=== PATIENT | male | born 1955 | race Caucasian/White ===

== ENCOUNTER 2021-08-16 01:16 | Day surgery (SDC) | payer MEDICARE, SELFPAY ==
[2021-08-07 14:03] VITALS: BMI 30.6
[2021-08-16 11:12] VITALS: BP 145/70; PULSE 75; RESP 18; TEMP 36.4; O2SAT 98; BMI 30.2
--- NOTE | 2021-08-16 11:14 | WPDGICN ---
Assessment and Plan Assessment and plan (1) Family history of colonic polyps: Code(s): Z83.71 - Family history of colonic polyps Status: Acute Assessment and Plan: Patient's father had colon polyps. For this reason surveillance colonoscopy has been advised. High-fiber diet advised further recommendations will be given after colonoscopy to be performed today. GI Consult Note Consult date/time: 08/16/21 11:14 HPI: Tvein Lopez is a 66 year old male Presents for screening colonoscopy. Patient reports his current weight appetite and bowel movements are normal. Patient denies abdominal pain. He has had no bleeding. Family history is significant his father had colon polyps. Patient's most recent colonoscopy 6 or 7 years ago was unremarkable. Patient presents today for screening follow-up colonoscopy. Review of Systems Review of Systems: All systems reviewed & are unremarkable except as noted in HPI and below PMFSH Past Medical History Medical History (Updated 08/16/21 @ 11:15 by Rafi Aguilera MD) CPAP (continuous positive airway pressure) dependence Fracture of left shoulder GI bleed Herniated disc History of blood transfusion Hyperlipidemia Migraines Obesity (BMI 30.0-34.9) Right hand fracture Shingles Skin cancer Sleep apnea CPAP Ulcer Vitamin deficiency Surgical History Surgical History H/O repair of rotator cuff right H/O sinus surgery H/O spinal fusion L3, L4, L5 H/O splenectomy H/O vasectomy Family History Family History Mother Family history of cardiovascular disease Grandparent Cerebrovascular accident Father Family history of arthritis Carcinoma of colon Colon polyp Social History Social History Smoking status: Never smoker Alcohol intake: current Drinks per week: 4 Alcohol use details: occasional Substance use: current Substance use type: marijuana Other substance usage details: occasional edible for back pain Living arrangements: with family Gender identity (if verbalized by the patient): Male Spiritual care concerns: No Meds Home Medications and Allergies Home Medications Medication Instructions Recorded Confirmed Type cholecalciferol (vitamin D3) 50 50 mcg PO DAILY 01/13/20 08/07/21 History mcg (2,000 unit) capsule tizanidine 2 mg tablet 2 mg PO TID PRN #90 tablet 06/05/20 08/07/21 Rx omeprazole 40 mg capsule,delayed 40 mg PO DAILY #90 cap 07/24/20 08/07/21 Rx release hydrocodone 5 mg-acetaminophen 325 1 tablet PO Q8H PRN #40 tablet 12/25/20 08/07/21 Rx mg tablet sildenafil (pulm.hypertension) 20 20 mg PO DAILY PRN #30 tablet 06/04/21 08/07/21 Rx mg tablet lisinopril 10 mg PO DAILY 08/07/21 08/07/21 History Allergies Allergy/AdvReac Type Severity Reaction Status Date / Time atorvastatin Allergy Unknown Muscle Pain Verified 08/07/21 14:05 poison lencho extract Allergy Unknown Skin Verified 08/07/21 14:05 Reaction Sulfa (Sulfonamide Allergy Unknown Skin Verified 08/07/21 14:05 Antibiotics) Reaction sulfamethizole Allergy Unknown Skin Verified 08/07/21 14:05 Reaction codeine AdvReac Unknown Nausea Verified 08/07/21 14:05 valacyclovir AdvReac Unknown Nausea Verified 08/07/21 14:05 Exam Narrative: physical exam reveals patient be alert. Vital signs stable. HEENT exam is unremarkable. Patient is anicteric. Lungs are clear to auscultation and percussion. Heart is without murmur or extra sounds. Abdominal exam bowel sounds are present soft nontender with no hepatosplenomegaly. Digital external rectal exam is normal.
[2021-08-16] MEDS: LACTATED RINGERS 1,000 ML 150 ML IV CONT (11:24)
--- NOTE | 2021-08-16 12:14 | WPDANESEPPF ---
Anes - Initial Pre Proc Eval Procedure: Operation Date: 08/16/21 12:30 Proposed Procedures p Screening Colonoscopy - Rafi Aguilera MD Date/Time: 08/16/21 12:14 Surgeon: Rafi Aguilera MD Pre Op Diagnosis: family hx of colon polyps Patient Data Age: 66 Gender: M Height: 1.75 m Weight: 92.7 kg Last Vital Signs Temp 97.6 F 08/16/21 11:12 Pulse 75 08/16/21 11:12 Resp 18 08/16/21 11:12 BP 145/70 H 08/16/21 11:12 Pulse Ox 98 08/16/21 11:12 Allergies Allergy/AdvReac Type Severity Reaction Status Date / Time atorvastatin Allergy Unknown Muscle Pain Verified 08/07/21 14:05 poison lencho extract Allergy Unknown Skin Verified 08/07/21 14:05 Reaction Sulfa (Sulfonamide Allergy Unknown Skin Verified 08/07/21 14:05 Antibiotics) Reaction sulfamethizole Allergy Unknown Skin Verified 08/07/21 14:05 Reaction codeine AdvReac Unknown Nausea Verified 08/07/21 14:05 valacyclovir AdvReac Unknown Nausea Verified 08/07/21 14:05 Home Medications Medication Instructions Recorded Confirmed Type cholecalciferol (vitamin D3) 50 50 mcg PO DAILY 01/13/20 08/07/21 History mcg (2,000 unit) capsule tizanidine 2 mg tablet 2 mg PO TID PRN #90 tablet 06/05/20 08/07/21 Rx omeprazole 40 mg capsule,delayed 40 mg PO DAILY #90 cap 07/24/20 08/07/21 Rx release hydrocodone 5 mg-acetaminophen 325 1 tablet PO Q8H PRN #40 tablet 12/25/20 08/07/21 Rx mg tablet sildenafil (pulm.hypertension) 20 20 mg PO DAILY PRN #30 tablet 06/04/21 08/07/21 Rx mg tablet lisinopril 10 mg PO DAILY 08/07/21 08/07/21 History Patient hx anesthesia problems: none Family hx anesthesia problems: none Results Review: All pre-operative results and documents have been reviewed as part of the pre-operative evaluation. [facility] Past Medical History Medical History (Updated 08/16/21 @ 11:15 by Rafi Aguilera MD) CPAP (continuous positive airway pressure) dependence Fracture of left shoulder GI bleed Herniated disc History of blood transfusion Hyperlipidemia Migraines Obesity (BMI 30.0-34.9) Right hand fracture Shingles Skin cancer Sleep apnea CPAP Ulcer Vitamin deficiency Surgical History Surgical History H/O repair of rotator cuff right H/O sinus surgery H/O spinal fusion L3, L4, L5 H/O splenectomy H/O vasectomy Family History Family History Mother Family history of cardiovascular disease Grandparent Cerebrovascular accident Father Family history of arthritis Carcinoma of colon Colon polyp Social History Social History Smoking status: Never smoker Alcohol intake: current Drinks per week: 4 Alcohol use details: occasional Substance use: current Substance use type: marijuana Other substance usage details: occasional edible for back pain Living arrangements: with family Gender identity (if verbalized by the patient): Male Spiritual care concerns: No Anes - Eval Final PreProcedure Day of Procedure 08/16/21 12:14 Patient weight: overweight Heart: regular rate and rhythm Lungs: clear to auscultation Airway: Mallampati scale class II Neurological: alert and oriented Last oral intake: >/= 8 hours ASA classification: II Emergent: no Anesthetic plan: proceed Anesthesia type and monitoring: general GIVS and standard monitoring Results Review: All pre-operative results and documents have been reviewed as part of the pre-operative evaluation. Informed Consent: The patient's anesthetic plan and its attendant risks and benefits were discussed with the patient/family/POA. Questions were solicited and answers provided to the satisfaction of the patient/family/POA.
[2021-08-16 12:42] VITALS: BP 107/72; PULSE 63; RESP 16; O2SAT 96
[2021-08-16 12:52] VITALS: BP 118/68; PULSE 63; RESP 16; O2SAT 98
[2021-08-16 13:02] VITALS: BP 121/86; PULSE 56; RESP 16; O2SAT 98
== END 2021-08-16 13:41 | disposition home or self-care (01) ==
PROVIDERS: PCP Family Medicine; Visit Provider Internal Medicine Gastroenterology
PROC: 0DJD8ZZ Inspection of Lower Intestinal Tract, Via Natural or Artificial Opening Endoscopic (ICD-10-PCS; CPT 45378; principal; 2021-08-16 12:30)
DX: Z12.11 Encounter for screening for malignant neoplasm of colon (principal); K64.8 Other hemorrhoids; Z83.71 Family history of colonic polyps; E78.5 Hyperlipidemia, unspecified; G47.33 Obstructive sleep apnea (adult) (pediatric); Z98.1 Arthrodesis status; F12.90 Cannabis use, unspecified, uncomplicated; Z79.891 Long term (current) use of opiate analgesic
CPT/HCPCS: G0105; J2704; J7120